=== PATIENT | female | born 1970 | race Caucasian/White ===

== ENCOUNTER 2016-07-25 15:55 | Emergency (ER) | payer OTHER ==
[2016-07-25 17:28] LABS: HEMOGLOBIN 11.8 gm/dl (12.3-15.3); RED BLOOD COUNT 3.86 M/UL (4.00-5.10); WHITE BLOOD COUNT 3.7 K/UL (4.5-11.0)
[2016-07-25 18:19] LABS: BUN/CREATININE RATIO 7 (0-10)
[2016-07-25 21:53] LABS: BUN/CREATININE RATIO 8 (0-10)
== END 2016-07-25 22:28 | disposition home or self-care (01) ==
LOC: ER1 15:55
PROVIDERS: Physician Assistant
DX: K70.31 Alcoholic cirrhosis of liver with ascites (principal); B19.20 Unspecified viral hepatitis C without hepatic coma; E87.6 Hypokalemia; D61.818 Other pancytopenia
CPT/HCPCS: 36415; 71010; 80048; 80053; 82140; 82150; 83605; 83690; 85025; 85610; 85730; 87040; 99285; J3480; J7050; Q9962

== ENCOUNTER 2020-09-29 19:18 | Emergency (ER) | payer MEDICARE, OTHER ==
[2020-09-29 20:20] LABS: RED BLOOD COUNT 3.62 M/UL (4.00-5.10); WHITE BLOOD COUNT 2.5 K/UL (4.5-11.0)
[2020-09-29 20:41] LABS: BUN/CREATININE RATIO 12 (0-10)
[2020-09-29] MEDS ORDERED: ZOFRAN ODT 4 MG4 MG PO (23:58)
== END 2020-09-30 00:17 | disposition home or self-care (01) ==
LOC: ER1 19:18
PROVIDERS: Physician Assistant
DX: S09.90XA Unspecified injury of head, initial encounter (principal); D61.818 Other pancytopenia; E11.65 Type 2 diabetes mellitus with hyperglycemia; R10.9 Unspecified abdominal pain; R11.2 Nausea with vomiting, unspecified; Z90.49 Acquired absence of other specified parts of digestive tract; Z90.710 Acquired absence of both cervix and uterus; Z20.822 Contact with and (suspected) exposure to COVID-19; X58.XXXA Exposure to other specified factors, initial encounter
CPT/HCPCS: 0240U; 70450; 71045; 80053; 81001; 82009; 82550; 82553; 83874; 83880; 84484; 85025; 85379; 85610; 85730; 93005; 96374; 99285; J2405; Q9967